=== PATIENT | female | born 1940 | race American Indian/Alaskan Native ===

== ENCOUNTER 2021-03-22 14:55 | Emergency (ER) | payer MEDICARE ==
--- NOTE | 2021-03-22 15:17 | Emergency Department Report ---
HPI - General Chief Complaint: Fall Time Seen by Provider: 03/22/21 15:02 - HPI HPI: Room 24 The patient is a 80-year-old female present with a chief complaint of fall. The patient was sent from [facility] where she was repor tedly witnessed having a fall sliding off of her bed onto the floor. [facility] living facility reports the patient complains of right hip and right arm pain. The patient states that she went to sit on the corner of the bed and missed and slid down to the floor striking the right side of her head. Patient complains of pain in her neck and also complains of pain in her right upper extremity however when asked to point to her pain the patient uses her right arm to point to her left elbow. ED Past Medical Hx - Past Medical History Previous Medical History?: Yes Hx Hypertension: Yes Hx Dementia: Yes Additional medical history: hypothyroid - Surgical History Past Surgical History?: No - Family History Family history: no significant - Social History Smoking Status: Unknown if ever smoked Substance Use Type: None - Medications Home Medications: Home Medications Medication Instructions Recorded Confirmed Last Taken Type traMADoL [Ultram] 50 mg PO Q6HR PRN #10 tablet 03/22/21 Unknown Rx ED Review of Systems ROS: Stated complaint: FALL INJURY Other details as noted in HPI Constitutional: no symptoms reported Eyes: denies: eye pain ENT: denies: throat pain Respiratory: no symptoms reported Cardiovascular: denies: chest pain Endocrine: no symptoms reported Gastrointestinal: denies: abdominal pain Genitourinary: denies: dysuria Musculoskeletal: arthralgia Neurological: headache Physical Exam - Physical Exam Vital Signs: Vital Signs 03/22/21 15:08 Temperature 97.4 F L Pulse Rate 68 Respiratory 18 Rate Blood Pressure 185/80 [Left] O2 Sat by Pulse 97 Oximetry Physical Exam: GENERAL: The patient is well-developed well-nourished female lying on stretcher not appearing to be in acute distress. [] HEENT: Normocephalic. Atraumatic. Extraocular motions are intact. Patient has moist mucous membranes. NECK: Supple. Trachea midline. No axial step-offs CHEST/LUNGS: Clear to auscultation. There is no respiratory distress noted. HEART/CARDIOVASCULAR: Regular. There is no tachycardia. There is no gallop rub or murmur. ABDOMEN: Abdomen is soft, nontender. Patient has normal bowel sounds. There is no abdominal distention. SKIN: There is no rash. There is no edema. There is no diaphoresis. NEURO: The patient is awake and alert. The patient is cooperative. The patient has no focal neurologic deficits. The patient has normal speech. GCS 15 MUSCULOSKELETAL: There is no deformity of either upper or lower extremity. Patient allows palpation of all extremities without grimacing or mentioning pain ED Course Vital Signs 03/22/21 15:08 Temperature 97.4 F L Pulse Rate 68 Respiratory 18 Rate Blood Pressure 185/80 [Left] O2 Sat by Pulse 97 Oximetry ED Medical Decision Making - Radiology Data Radiology results: report reviewed (Bilateral tib-fib x-rays, bilateral humerus x-rays, bilateral femur x-ray, bilateral forearm x-ray, CT head, CT cervical spine), image reviewed (Bilateral tib-fib x-rays, bilateral humerus x-rays, bilateral femur x-ray, bilateral forearm x-ray, CT head, CT cervical spine) interpreted by me: Bilateral humerus x-rays-no acute fracture, no dislocation Bilateral forearm x-ray-no acute fracture, no dislocation Bilateral femur x-rays-no acute fracture, no dislocation Bilateral tib-fib x-rays-no acute fracture, no dislocation [facility] [address] [place] [address] XRay Report Signed Patient: CHERYL BARRIOS MR#: [id number] : 1940 Acct:[id number] Age/Sex: 80 / F ADM Date: 03/22/21 Loc: ED Attending Dr: Ordering Physician: WYATT PEREZ MD Date of Service: 03/22/21 Procedure(s): XR tib/fib BILAT 2V Accession Number(s): [id number] cc: WYATT PEREZ MD Fluoro Time In Minutes: BILATERAL TIBIAS/FIBULAS 8 VIEWS INDICATION / CLINICAL INFORMATION: Pain in legs after fall. COMPARISON: None available. FINDINGS: BONES and JOINT(S): No acute fracture or subluxation. 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 SOFT TISSUES: No significant abnormality. ADDITIONAL FINDINGS: None. IMPRESSION: 1. No acute findings. Signer Name: Adonis Burgess MD Signed: 03/22/2021 4:46 PM Workstation Name: [email or web address] Transcribed By: MN Dictated By: Adonis uBrgess MD Electronically Authenticated By: Adonis Burgess MD Signed Date/Time: 03/22/211645 DD/ 44 TD/TT: NONO [address] [address] XRay Report Signed Patient: CHERYL BARRIOS MR#: [id number] : 1940 Acct:[id number] Age/Sex: 80 / F ADM Date: 03/22/21 Loc: ED Attending Dr: Ordering Physician: WYATT PEREZ MD Date of Service: 03/22/21 Procedure(s): XR humerus BILAT 2+V Accession Number(s): [id number] cc: WYATT PEREZ MD Fluoro Time In Minutes: BILATERAL HUMERUS 5 VIEW(S) INDICATION / CLINICAL INFORMATION: Pain after fall COMPARISON: None available. FINDINGS: BONES / JOINT(S): No acute fracture or subluxation. Degenerative changes of bilateral glenohumeral and acromioclavicular joints. SOFT TISSUES: No significant abnormality. ADDITIONAL FINDINGS: None. Signer Name: Parvez Campos MD Signed: 03/22/2021 4:46 PM Workstation Name: [id number] Transcribed By: SB Dictated By: PARVEZ CAMPOS MD Electronically Authenticated By: PARVEZ CAMPOS MD Signed Date/Time: 03/22/211645 DD/ 44 TD/TT: Tr[employer] [address] [address] XRay Report Signed Patient: CHERYL BARRIOS MR#: [id number] : 1940 Acct:[id number] Age/Sex: 80 / F ADM Date: 03/22/21 Loc: ED Attending Dr: Ordering Physician: WYATT PEREZ MD Date of Service: 03/22/21 Procedure(s): XR forearm BILAT 2V Accession Number(s): [id number] cc: WYATT PEREZ MD Fluoro Time In Minutes: BILATERAL FOREARM 4 VIEW(S) INDICATION / CLINICAL INFORMATION: Pain after fall COMPARISON: None available. FINDINGS: BONES / JOINT(S): No acute fracture or subluxation. No significant arthritis. SOFT TISSUES: No significant abnormality. ADDITIONAL FINDINGS: None. Signer Name: Parvez Campos MD Signed: 03/22/2021 4:46 PM Workstation Name: [id number] Transcribed By: GUZMAN Dictated By: PARVEZ CAMPOS MD Electronically Authenticated By: PARVEZ CAMPOS MD Signed Date/Time: 03/22/211645 DD/ 45 TD/TT: Print [employer] [address] [address] XRay Report Signed Patient: CHERYL BARRIOS MR#: [id number] : 1940 Acct:[id number] Age/Sex: 80 / F ADM Date: 03/22/21 Loc: ED Attending Dr: Ordering Physician: WYATT PEREZ MD Date of Service: 03/22/21 Procedure(s): XR femur BILAT 2+V Accession Number(s): [id number] cc: WYATT PEREZ MD Fluoro Time In Minutes: BILATERAL FEMUR 8 VIEW(S) INDICATION / CLINICAL INFORMATION: Pain after fall COMPARISON: None available. FINDINGS: BONES / JOINT(S): No acute fracture or subluxation. 'S moderate degenerative changes of the bilateral hips and knees. SOFT TISSUES: No significant abnormality. ADDITIONAL FINDINGS: None. Signer Name: Parvez Campos MD Signed: 03/22/2021 4:45 PM Workstation Name: [id number] Transcribed By: GUZMAN Dictated By: PARVEZ CAMPOS MD Electronically Authenticated By: PARVEZ CAMPOS MD Signed Date/Time: 03/22/211644 DD/ 1640 TD/TT: Print [employer] [address] [address] Cat Scan Report Signed Patient: CHERYL BARRIOS MR#: [id number] : 1940 Acct:[id number] Age/Sex: 80 / F ADM Date: 03/22/21 Loc: ED Attending Dr: Ordering Physician: WYATT PEREZ MD Date of Service: 03/22/21 Procedure(s): CT head/brain wo con Accession Number(s): [id number] cc: WYATT PEREZ MD CT BRAIN: 03/22/2021 INDICATION / CLINICAL INFORMATION: Fall, reportedly struck right side of head. COMPARISON: None available. FINDINGS: BRAIN/INTRACRANIAL STRUCTURES: Unenhanced CT images of the brain demonstrate no evidence of acute intracranial abnormality. Ventricles and sulci are normal in size and shape for a patient of this age. There is no evidence of hemorrhage or mass. There are no abnormal extra-axial fluid collections. Ocular postoperative changes are present bilaterally. EXTRACRANIAL STRUCTURES: Unremarkable. IMPRESSION: No acute intracranial abnormality. Age-related changes. All CT scans at this location are performed using dose reduction to ALARA by means of automated exposure control. Signer Name: Bryn Melton MD Signed: 03/22/2021 5:19 PM Workstation Name: [id number] Transcribed By: ZAMZAM Dictated By: Bryn Melton MD Electronically Authenticated By: Bryn Melton MD Signed Date/Time: 03/22/211718 DD/ 16 TD/TT: Print Cancel [facility] [address] [place] [address] Cat Scan Report Signed Patient: CHERYL BARRIOS MR#: [id number] : 1940 Acct:[id number] Age/Sex: 80 / F ADM Date: 03/22/21 Loc: ED Attending Dr: Ordering Physician: WYATT PEREZ MD Date of Service: 03/22/21 Procedure(s): CT cervical spine wo con Accession Number(s): [id number] cc: WYATT PEREZ MD CT CERVICAL SPINE: 03/22/2021 INDICATION / CLINICAL INFORMATION: Pain after fall. COMPARISON: None available. FINDINGS: CT images of the cervical spine were obtained. Images are evaluated in the axial, coronal, and sagittal planes. There is no evidence of acute abnormality. Right convex scoliosis is centered at the cervicothoracic junction. Multilevel degenerative disc space narrowing and osteophyte formation is present. Facet degenerative changes are present bilaterally. CRANIOCERVICAL JUNCTION: Unremarkable. PARASPINAL STRUCTURES: No significant abnormality. IMPRESSION: No significant abnormality. Degenerative changes. All CT scans at this location are performed using dose reduction to ALARA by means of automated exposure control. Signer Name: Bryn Melton MD Signed: 03/22/2021 5:22 PM Workstation Name: [id number] Transcribed By: ZAMZAM Dictated By: Bryn Melton MD Electronically Authenticated By: Bryn Melton MD Signed Date/Time: 03/22/211721 DD/ 18 TD/TT: Print Cancel - Differential Diagnosis Close head injury, subdural hematoma, extremity fracture, contusion Critical care attestation.: If time is entered above; I have spent that time in minutes in the direct care of this critically ill patient, excluding procedure time. ED Disposition Clinical Impression: Closed head injury, Contusion of left arm Disposition: 03 INTERMEDIATE FACILITY Is pt being admited?: No Does the pt Need Aspirin: No Condition: Stable Instructions: Head Injury, Adult, [id number] Additional Instructions: Return to the emergency department should you develop worsening symptoms, inability to tolerate food or liquids, high fever or any other concerns Prescriptions: traMADoL [Ultram] 50 mg PO Q6HR PRN #10 tablet PRN Reason: Pain Time of Disposition: 17:30
--- NOTE | 2021-03-22 16:49 | XRay Report ---
BILATERAL FEMUR 8 VIEW(S) INDICATION / CLINICAL INFORMATION: Pain after fall COMPARISON: None available. FINDINGS: BONES / JOINT(S): No acute fracture or subluxation. 'S moderate degenerative changes of the bilateral hips and knees. SOFT TISSUES: No significant abnormality. ADDITIONAL FINDINGS: None. Signer Name: Parvez Campos MD Signed: 03/22/2021 4:45 PM Workstation Name: [email or web address]
--- NOTE | 2021-03-22 16:50 | XRay Report ---
BILATERAL HUMERUS 5 VIEW(S) INDICATION / CLINICAL INFORMATION: Pain after fall COMPARISON: None available. FINDINGS: BONES / JOINT(S): No acute fracture or subluxation. Degenerative changes of bilateral glenohumeral an d acromioclavicular joints. SOFT TISSUES: No significant abnormality. ADDITIONAL FINDINGS: None. Signer Name: Parvez Campos MD Signed: 03/22/2021 4:46 PM Workstation Name: [id number]
--- NOTE | 2021-03-22 16:51 | XRay Report ---
BILATERAL FOREARM 4 VIEW(S) INDICATION / CLINICAL INFORMATION: Pain after fall COMPARISON: None available. FINDINGS: BONES / JOINT(S): No acute fracture or subluxation. No significant arthritis. SOFT TISSUES: No significant abnormality. ADDITIONAL FINDINGS: None. Signer Name: Parvez Campos MD Signed: 03/22/2021 4:46 PM Workstation Name: [email or web address]
--- NOTE | 2021-03-22 16:51 | XRay Report ---
BILATERAL TIBIAS/FIBULAS 8 VIEWS INDICATION / CLINICAL INFORMATION: Pain in legs after fall. COMPARISON: None available. FINDINGS: BONES and JOINT(S): No acute fracture or subluxation. 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 SOFT TISSUES: No significant abnormality. ADDITIONAL FINDINGS: None. IMPRESSION: 1. No acute findings. Signer Name: Adonis Burgess MD Signed: 03/22/2021 4:46 PM Workstation Name: [email or web address] [id number]
--- NOTE | 2021-03-22 17:23 | Cat Scan Report ---
CT BRAIN: 03/22/2021 INDICATION / CLINICAL INFORMATION: Fall, reportedly struck right side of head. COMPARISON: None available. FINDINGS: BRAIN/INTRACRANIAL STRUCTURES: Unenhanced CT images of the brain demonstrate no evidence of acute int racranial abnormality. Ventricles and sulci are normal in size and shape for a patient of this age. There is no evidence of hemorrhage or mass. There are no abnormal extra-axial fluid collections. Ocular postoperative changes are present bilaterally. EXTRACRANIAL STRUCTURES: Unremarkable. IMPRESSION: No acute intracranial abnormality. Age-related changes. All CT scans at this location are performed using dose reduction to ALARA by means of automated expos ure control. Signer Name: Bryn Melton MD Signed: 03/22/2021 5:19 PM Workstation Name: [id number]
--- NOTE | 2021-03-22 17:26 | Cat Scan Report ---
CT CERVICAL SPINE: 03/22/2021 INDICATION / CLINICAL INFORMATION: Pain after fall. COMPARISON: None available. FINDINGS: CT images of the cervical spine were obtained. Images are evaluated in the axial, coronal, and sagitt al planes. There is no evidence of acute abnormality. Right convex scoliosis is centered at the cervicothoracic junction. Multilevel degenerative disc space narrowing and osteophyte formation is present. Facet degenerative changes are present bilaterally. CRANIOCERVICAL JUNCTION: Unremarkable. PARASPINAL STRUCTURES: No significant abnormality. IMPRESSION: No significant abnormality. Degenerative changes. All CT scans at this location are performed using dose reduction to ALARA by means of automated expos ure control. Signer Name: Bryn Melton MD Signed: 03/22/2021 5:22 PM Workstation Name: [id number]
[2021-03-22 23:22] VITALS: BP 170/81
== END 2021-03-22 22:30 ==
LOC: ED 14:55
DX: S40.022A Contusion of left upper arm, initial encounter (principal); S09.90XA Unspecified injury of head, initial encounter; I10 Essential (primary) hypertension; F03.90 Unspecified dementia, unspecified severity, without behavioral disturbance, psychotic disturbance, mood disturbance, and anxiety; E03.9 Hypothyroidism, unspecified; W19.XXXA Unspecified fall, initial encounter; Y93.89 Activity, other specified; Y92.89 Other specified places as the place of occurrence of the external cause; Y99.8 Other external cause status
CPT/HCPCS: 70450; 72125; 99284; 99285